=== PATIENT | female | born 1990 | race American Indian/Alaskan Native ===

== ENCOUNTER 2017-02-03 17:20 | Emergency (ER) | payer OTHER ==
[~2017-02-03] VITALS: Ht 157.5 cm; Wt 78.0 kg
[~2017-02-03 17:20] MED LIST: ALBU8.5H3 INH; AMLO-218 PO; HYDR12.53 PO; LEVO500T72 PO; METO25TA4 PO; NAPR-260 PO; PRED20TA PO
[2017-02-03 17:22] VITALS: Ht 157.5 cm; Wt 78.0 kg
[2017-02-03] MEDS ORDERED: IBUPROFEN 600 MG TAB PO ONE (19:00)
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
[2017-02-03] MEDS ORDERED: ORPH100T PO (20:37)
[2017-02-03] MEDS ORDERED: IBUP-1542 PO (20:37)
[2017-02-03 20:45] VITALS: BP 122/68; PULSE 82; RESP 18; TEMP 98
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
== END 2017-02-03 20:45 | disposition home or self-care (01) ==
LOC: FTE 17:20
DX: S19.9XXA Unspecified injury of neck, initial encounter (principal); S29.9XXA Unspecified injury of thorax, initial encounter; I10 Essential (primary) hypertension; V49.50XA Passenger injured in collision with unspecified motor vehicles in traffic accident, initial encounter
CPT/HCPCS: 72040; 72072; Z7610

== ENCOUNTER 2017-02-11 08:44 | Emergency (ER) | payer OTHER ==
[~2017-02-11] VITALS: Ht 157.5 cm; Wt 75.0 kg
[~2017-02-11 08:44] MED LIST changes: +IBUP-1542 PO; +ORPH100T PO
[2017-02-11 08:47] VITALS: Ht 157.5 cm; Wt 75.0 kg
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
== END 2017-02-11 10:04 | disposition home or self-care (01) ==
LOC: FTE 08:44
DX: M62.830 Muscle spasm of back (principal); M54.2 Cervicalgia; I10 Essential (primary) hypertension
CPT/HCPCS: 99283

== ENCOUNTER 2017-12-07 15:26 | Inpatient (IN) | END 2017-12-09 16:40 | disposition home or self-care (01) | DRG 203 ==

== ENCOUNTER 2017-12-23 21:42 | Emergency (ER) | END 2017-12-24 01:45 | disposition home or self-care (01) ==

== ENCOUNTER 2018-01-20 15:57 | Emergency (ER) | END 2018-01-20 16:26 | disposition home or self-care (01) ==

== ENCOUNTER 2018-04-09 15:11 | Emergency (ER) | END 2018-04-09 17:21 | disposition home or self-care (01) ==

== ENCOUNTER 2018-07-06 12:02 | Emergency (ER) | END 2018-07-06 17:54 | disposition home or self-care (01) ==

== ENCOUNTER 2018-07-06 22:14 | Emergency (ER) | END 2018-07-07 04:50 | disposition home or self-care (01) ==